=== PATIENT | female | born 1955 | race Caucasian/White ===

== ENCOUNTER 2021-10-27 12:26 | Outpatient (CLI) | payer MEDICARE | END 2021-10-27 12:27 | disposition home or self-care (01) | LOC: MRI 12:26 | PROVIDERS: ATTEND Ophthalmology | DX: H11.231 Symblepharon, right eye (principal); I67.82 Cerebral ischemia | CPT/HCPCS: 70553 ==

== ENCOUNTER 2021-12-06 09:30 | Outpatient (CLI) | payer MEDICARE | END 2021-12-06 09:31 | disposition home or self-care (01) | LOC: ULT 09:30 | PROVIDERS: ATTEND Nurse Practitioner Family | DX: R10.10 Upper abdominal pain, unspecified (principal) | CPT/HCPCS: 76700 ==

== ENCOUNTER 2023-07-31 09:52 | Outpatient (CLI) | payer MEDICARE | END 2023-07-31 09:53 | disposition home or self-care (01) | LOC: BICMAMMO 09:52 | PROVIDERS: ATTEND Family Medicine | DX: Z12.31 Encounter for screening mammogram for malignant neoplasm of breast (principal) | CPT/HCPCS: 77063; 77067 ==